=== PATIENT | male | born 1965 | race Caucasian/White ===

== ENCOUNTER → 2019-04-25 | Outpatient (CLI) | payer OTHER | LOC: HYPER 07:45 | DX: T81.31XA Disruption of external operation (surgical) wound, not elsewhere classified, initial encounter (principal); L97.312 Non-pressure chronic ulcer of right ankle with fat layer exposed; F17.290 Nicotine dependence, other tobacco product, uncomplicated; Y92.89 Other specified places as the place of occurrence of the external cause; Y83.8 Other surgical procedures as the cause of abnormal reaction of the patient, or of later complication, without mention of misadventure at the time of the procedure ==

== ENCOUNTER → 2019-05-06 | Outpatient (CLI) | payer OTHER ==
[~2019-05-06] MED LIST: CEFTAZIDIME2 GM INJECTION; GENTAMICIN CREAM TOP; IRBESARTAN150 MG PO; LIPITOR10 MG PO; RESTASIS1 EACH OPHTHALMIC; TIMOLOL MALEATE5 M2 OPHTHALMIC
== END ==
LOC: HYPER 07:50
DX: T81.31XD Disruption of external operation (surgical) wound, not elsewhere classified, subsequent encounter (principal); L97.312 Non-pressure chronic ulcer of right ankle with fat layer exposed; F17.290 Nicotine dependence, other tobacco product, uncomplicated; Y83.8 Other surgical procedures as the cause of abnormal reaction of the patient, or of later complication, without mention of misadventure at the time of the procedure

== ENCOUNTER → 2019-05-09 | Outpatient (CLI) | payer OTHER ==
[2019-05-09 17:26] LABS: HEMOGLOBIN 13.5 gm/dL (14.0-18.0); MCH 29.2 pg (26.0-34.0); MCHC 33.7 g/dL (28.0-37.0); MCV 86.6 fL (80.0-100.0); RBC 4.62 mil/uL (4.50-6.00); RDW 13.7 % (10.5-14.5); WBC 7.7 thou/uL (4.0-11.0)
[2019-05-09 17:44] LABS: ALBUMIN 3.5 g/dL (3.4-5.0); CALCIUM 9.1 mg/dL (8.5-10.1); CREATININE 0.9 mg/dL (0.7-1.3); POTASSIUM 3.5 mmol/L (3.5-5.1); TOTAL BILIRUBIN 0.7 mg/dL (<0.1-1.0); TOTAL PROTEIN 6.7 g/dL (6.4-8.2)
[2019-05-09 17:45] VITALS: BP 135/85
[2019-05-09 17:56] VITALS: BP 135/85
--- NOTE | 2019-05-09 18:37 | NUR ---
PT HERE TO SEE DR. ASHTON, GET PICC LINE PLACED AND 1ST DOSE IV ANTIBIOTIC GIVEN. PT SEEN AND EVALUATED BY DR. ASHTON. HAS BEEN UNDER TREATMENT WITH DR. SALDAÑA IN THE [facility] WITH NONHEALING R ANKLE WOUND. AFTER TEACHING, HISTORY GATHERING AND CONFIRMATION WITH INSURANCE COMPANY FOR COVERAGE OBTAINED, PICC LINE PLACED BY VASCULAR ACCESS NURSE. CEFTAZIDIME GIVEN WITHOUT INCIDENT, NO S/S REACTION. LABS DRAWN, ANKLE XRAY OBTAINED. ELIZABETH RN CAME TO DO ALL PT TEACHING AND DELIVER SUPPLIES NEEDED FOR HOME INFUSION. PLANS TO DO THE INFUSIONS PT IS LEGALLY BLIND. PT SCHEDULED TO RETURN TO CLINIC NEXT WEEK FOR PICC LINE DRESSING CHANGE, LABS ELIZABETH CANNOT DO THESE THINGS IN PT'S HOME (NO [place] LICENSING). PT SCHEDULED TO SEE DR. ASHTON HERE AT THAT SAME TIME. DISMISSED IN STABLE CONDITION.
== END ==
LOC: OPONC 14:00
PROVIDERS: Specialist
DX: L03.115 Cellulitis of right lower limb (principal)
CPT/HCPCS: 27000; 95000

== ENCOUNTER → 2019-05-14 | Outpatient (CLI) | payer OTHER ==
[2019-05-14 12:34] LABS: HEMATOCRIT 43.1 % (42.0-52.0); HEMOGLOBIN 14.2 gm/dL (14.0-18.0); MCV 87.8 fL (80.0-100.0); RBC 4.9 mil/uL (4.50-6.00); RDW 13.7 % (10.5-14.5); WBC 7.6 thou/uL (4.0-11.0)
[2019-05-14 12:58] LABS: ALBUMIN 3.5 g/dL (3.4-5.0); CALCIUM 9.2 mg/dL (8.5-10.1); POTASSIUM 3.8 mmol/L (3.5-5.1); TOTAL BILIRUBIN 0.8 mg/dL (<0.1-1.0)
[2019-05-14 13:05] VITALS: BP 108/74
--- NOTE | 2019-05-14 15:00 | NUR ---
HERE FOR CLINIC VISIT WITH DR. ASHTON, LABS AND TO HAVE PICC DRESSING CHANGE DONE. PT REPORTS FEELING WELL. DENIES N/V/DIARRHEA, FEVER/CHILLS/SWEATS. R ANKLE WOUND EVALUATED BY DR. ASHTNO. ORDERS RECEIVED TO CONTINUE IV ANTIBIOTIC Q8H IN THE HOME, RETURN HERE NEXT WEEK (SUNDAY OK'D ONLY DAY PT COULD COME) FOR CLINIC VISIT AND TO HAVE PICC DRESSING CHANGE DONE, LABS DRAWN. ORDERS SENT TO DR. ASHTON'S OFFICE, JUN, WHO PASSED THIS ORDER ON TO ELIZABETH WHO WILL SET UP DELIVERY OF MORE MEDICATION TO THE PATIENT TODAY. , MONIE, APPRISED. PT WAS DISMISSED POST CLINIC VISIT AT 1305 IN STABLE CONDITION.
== END ==
LOC: OPONC 09:02
PROVIDERS: Specialist
DX: L03.115 Cellulitis of right lower limb (principal)

== ENCOUNTER → 2019-05-21 | Outpatient (CLI) | payer OTHER | LOC: HYPER 10:31 | DX: T81.31XD Disruption of external operation (surgical) wound, not elsewhere classified, subsequent encounter (principal); L97.312 Non-pressure chronic ulcer of right ankle with fat layer exposed; F17.200 Nicotine dependence, unspecified, uncomplicated; Y83.8 Other surgical procedures as the cause of abnormal reaction of the patient, or of later complication, without mention of misadventure at the time of the procedure ==

== ENCOUNTER → 2019-05-23 | Outpatient (CLI) | payer OTHER ==
[2019-05-23 11:53] LABS: HEMATOCRIT 41.1 % (42.0-52.0); HEMOGLOBIN 13.9 gm/dL (14.0-18.0); MCH 29.3 pg (26.0-34.0); MCHC 33.9 g/dL (28.0-37.0); MCV 86.3 fL (80.0-100.0); RBC 4.76 mil/uL (4.50-6.00); RDW 13.4 % (10.5-14.5); WBC 7.6 thou/uL (4.0-11.0)
[2019-05-23 12:15] LABS: ALBUMIN 3.3 g/dL (3.4-5.0); CALCIUM 9.5 mg/dL (8.5-10.1); POTASSIUM 3.9 mmol/L (3.5-5.1); TOTAL BILIRUBIN 0.5 mg/dL (<0.1-1.0); TOTAL PROTEIN 7.2 g/dL (6.4-8.2)
--- NOTE | 2019-05-23 15:43 | NUR ---
PATIENT ARRIVED AT 1100 FOR PICC LINE LAB DRAW AND A CLINIC VISIT WITH DR. ASHTON. MALCOM BLOOD FROM PICC LINE WITHOUT DIFFICULTY AND SENT TO LAB. DR. ASHTON VISITED. PATIENT IS TO CONTINUE HIS HOME IV CEFTAZIDIME FOR 1 MORE WEEK AND RETURN HERE NEXT SUNDAY FOR CLINIC VISIT. FAXED ORDER TO, DR. ASHTON'S COMPUTER DISCOVERY TEACHER [employer]YRONE. TYRONE WILL SENT ORDER TO PATIENT'S HOME HEALTH COMPANY AND THEY WILL SUPPLY ONE MORE WEEK OF MEDICATION. PICC SITE WNL. PICC DRESSING CHANGED. DISMISSED IN STABLE CONDITION.
== END ==
LOC: OPONC 08:07
PROVIDERS: Specialist
DX: L03.115 Cellulitis of right lower limb (principal)

== ENCOUNTER → 2019-05-28 | Outpatient (CLI) | payer OTHER ==
--- NOTE | 2019-05-28 14:56 | NUR ---
IN FOR CENTRAL LINE LAB DRAW. TO SEE DR. ASHTON SUNDAY SO MALCOM LABS TODAY PATIENT HAD ANOTHER APPT HERE. PICC SITE WNL. RECEIVED GOOD BLOOD RETURN AND FLUSHED EASILY. MALCOM LABS WITHOUT DIFFICULTY. SALINE LOCKED PICC LINE WITH 20 ML NS. DISMISSED TO WOUND CLINIC IN STABLE CONDITION.
[2019-05-28 15:20] LABS: HEMATOCRIT 40.6 % (42.0-52.0); HEMOGLOBIN 13.6 gm/dL (14.0-18.0); MCH 29.2 pg (26.0-34.0); MCHC 33.6 g/dL (28.0-37.0); MCV 86.8 fL (80.0-100.0); RBC 4.67 mil/uL (4.50-6.00); RDW 13.6 % (10.5-14.5); WBC 6.8 thou/uL (4.0-11.0)
[2019-05-28 15:35] LABS: ALBUMIN 3.6 g/dL (3.4-5.0); CALCIUM 9.2 mg/dL (8.5-10.1); CREATININE 1.1 mg/dL (0.7-1.3); POTASSIUM 3.8 mmol/L (3.5-5.1); TOTAL BILIRUBIN 0.5 mg/dL (<0.1-1.0); TOTAL PROTEIN 7.4 g/dL (6.4-8.2)
== END ==
LOC: OPONC 07:18
PROVIDERS: Specialist
DX: L03.115 Cellulitis of right lower limb (principal)

== ENCOUNTER → 2019-05-28 | Outpatient (CLI) | payer OTHER | LOC: HYPER 14:46 | DX: T81.31XD Disruption of external operation (surgical) wound, not elsewhere classified, subsequent encounter (principal); L97.312 Non-pressure chronic ulcer of right ankle with fat layer exposed; F17.290 Nicotine dependence, other tobacco product, uncomplicated; Y83.8 Other surgical procedures as the cause of abnormal reaction of the patient, or of later complication, without mention of misadventure at the time of the procedure ==

== ENCOUNTER → 2019-05-30 | Outpatient (CLI) | payer OTHER ==
[2019-05-30 11:15] VITALS: BP 123/86
--- NOTE | 2019-05-30 15:26 | NUR ---
IN FOR CLINIC VISIT WITH DR. ASHTON FOR F/U OF RLE CELLULITIS/WOUND. DR. ASHTON VISITED. LABS REVIEWED. NEW ORDERS WRITTEN. PICC LINE REMOVED AND PRESSURE HELD X 5 MINUTES. APPLIED GAUZE AND SECURED WITH COBAN PRESSURE DRESSING. APPLIED CLEAN DRESSIING OF MEDIHONEY AND KERLIX TO RT FOOT. WOUND FILLING IN AND HEALING NICELY. DENIED PAIN. PATIENT TO STOP IV ANTIBIOTICS. NO PO ANTIBIOTIC NEEDED PER DR. ASHTON. PATIENT WILL RETURN NEXT SUNDAY FOR ANOTHER F/U VISIT WITH DR. ASHTON. DISMISSED IN STABLE CONDITION.
== END ==
LOC: OPONC 09:00 → EDSTATUS 18:03
DX: L03.115 Cellulitis of right lower limb (principal)
CPT/HCPCS: 91018

== ENCOUNTER → 2019-06-05 | Outpatient (CLI) | payer OTHER ==
--- NOTE | 2019-06-05 12:45 | NUR ---
IN FOR CLINIC VISIT WITH DR. ASHTON FOR F/U OF RT FOOT WOUND. DR. ASHTON VISITED. UNABLE TO VIEW WOUND PATIENT HAD AN ABSORBABLE DRESSING ON THAT COULD NOT BE REMOVED FOR 3 DAYS. SLIGHT EDEMA NOTED TO RIGHT ANKLE. NO REDNESS OR PAIN. DR. ASHTON GAVE PATIENT A PRESCRIPTION FOR DOXYCYCLINE TO HAVE IN CASE HE NEEDS IT FOR HIS TRIP TO [facility]. THIS RN APPLIED NEW KERLIX AND LEIGH WRAP. NO NEW ORDER TO SEE AGAIN. PATIENT WILL F/U WITH WOUND CLINIC WHOM WILL MANAGE WOUND CARE. DISMISSED IN STABLE CONDITION.
== END ==
LOC: OPONC 09:47
DX: Z48.01 Encounter for change or removal of surgical wound dressing (principal)
CPT/HCPCS: 91017

== ENCOUNTER → 2019-06-12 | Outpatient (CLI) | payer OTHER | LOC: HYPER 15:10 | DX: T81.31XD Disruption of external operation (surgical) wound, not elsewhere classified, subsequent encounter (principal); L97.312 Non-pressure chronic ulcer of right ankle with fat layer exposed; F17.210 Nicotine dependence, cigarettes, uncomplicated; Y83.8 Other surgical procedures as the cause of abnormal reaction of the patient, or of later complication, without mention of misadventure at the time of the procedure ==

== ENCOUNTER → 2019-06-26 | Outpatient (CLI) | payer OTHER | LOC: HYPER 15:22 | DX: T81.31XD Disruption of external operation (surgical) wound, not elsewhere classified, subsequent encounter (principal); L97.312 Non-pressure chronic ulcer of right ankle with fat layer exposed; H54.8 Legal blindness, as defined in USA; F17.290 Nicotine dependence, other tobacco product, uncomplicated; Y83.8 Other surgical procedures as the cause of abnormal reaction of the patient, or of later complication, without mention of misadventure at the time of the procedure ==

== ENCOUNTER → 2019-07-02 | Outpatient (CLI) | payer OTHER | LOC: HYPER 10:49 | DX: T81.31XD Disruption of external operation (surgical) wound, not elsewhere classified, subsequent encounter (principal); L97.312 Non-pressure chronic ulcer of right ankle with fat layer exposed; F17.200 Nicotine dependence, unspecified, uncomplicated; Y83.8 Other surgical procedures as the cause of abnormal reaction of the patient, or of later complication, without mention of misadventure at the time of the procedure ==

== ENCOUNTER → 2019-07-09 | Outpatient (CLI) | payer OTHER | LOC: HYPER 08:49 | DX: T81.31XD Disruption of external operation (surgical) wound, not elsewhere classified, subsequent encounter (principal); L97.312 Non-pressure chronic ulcer of right ankle with fat layer exposed; F17.290 Nicotine dependence, other tobacco product, uncomplicated; H54.8 Legal blindness, as defined in USA; Y83.8 Other surgical procedures as the cause of abnormal reaction of the patient, or of later complication, without mention of misadventure at the time of the procedure ==

== ENCOUNTER → 2019-07-16 | Outpatient (CLI) | payer OTHER | LOC: HYPER 08:11 | DX: T81.31XD Disruption of external operation (surgical) wound, not elsewhere classified, subsequent encounter (principal); L97.312 Non-pressure chronic ulcer of right ankle with fat layer exposed; F17.290 Nicotine dependence, other tobacco product, uncomplicated; Y83.8 Other surgical procedures as the cause of abnormal reaction of the patient, or of later complication, without mention of misadventure at the time of the procedure ==

== ENCOUNTER → 2019-07-23 | Outpatient (CLI) | payer OTHER | LOC: HYPER 09:06 | DX: T81.31XD Disruption of external operation (surgical) wound, not elsewhere classified, subsequent encounter (principal); L97.312 Non-pressure chronic ulcer of right ankle with fat layer exposed; L84 Corns and callosities; F17.210 Nicotine dependence, cigarettes, uncomplicated; Y83.8 Other surgical procedures as the cause of abnormal reaction of the patient, or of later complication, without mention of misadventure at the time of the procedure ==

== ENCOUNTER → 2019-08-06 | Outpatient (CLI) | payer OTHER | LOC: HYPER 08:40 | DX: T81.31XD Disruption of external operation (surgical) wound, not elsewhere classified, subsequent encounter (principal); L97.312 Non-pressure chronic ulcer of right ankle with fat layer exposed; F17.290 Nicotine dependence, other tobacco product, uncomplicated; Z79.01 Long term (current) use of anticoagulants; Y83.8 Other surgical procedures as the cause of abnormal reaction of the patient, or of later complication, without mention of misadventure at the time of the procedure ==